=== PATIENT | male | born 1955 | race Two or more races ===

== ENCOUNTER 2017-08-05 19:02 | Emergency (ER) | payer MEDICAID, OTHER ==
[~2017-08-05] VITALS: Ht 162.6 cm; Wt 72.6 kg
[2017-08-05] MEDS ORDERED: Tylenol #3 tab (300mg/30mg) PO ONE (19:15)
[2017-08-05] MEDS ORDERED: Tetanus/Diptheria/Pertussis Vaccine 0.5ml Syr IM ONE (19:15)
[2017-08-05] MEDS ORDERED: Augmentin 875mg Tab ORAL ONE (19:15)
--- NOTE | 2017-08-05 19:30 | Emergency Room Report ---
History of Present Illness General Chief Complaint: Puncture Wound Source: Patient Present Illness HPI 62-year-old male presents ED for evaluation. States tonight he fell forward and his left hand landed on a nail. Patient states he removed the nail. Notes pain in his hands. Throbbing, 6/10, nonradiating. Tetanus unknown. Denies any other injuries. Denies any fevers or chills. Denies any discharge. No other aggravating relieving factors. Denies any other associated symptoms Allergies: Coded Allergies: No Known Allergies (Unverified , 08/05/17) Patient History Past Medical History: DM, HTN Past Surgical History: none Pertinent Family History: none Social History: Denies: smoking, alcohol use, drug use Immunizations: UTD Reviewed Nursing Documentation: PMH: Agreed, PSxH: Agreed Nursing Documentation-PMH Hx Hypertension: Yes Hx Diabetes: Yes Review of Systems All Other Systems: negative except mentioned in HPI Physical Exam Vital Signs Date Time Temp Pulse Resp B/P (MAP) Pulse Ox O2 Delivery O2 Flow Rate FiO2 08/05/17 19:05 98.2 78 22 98 Sp02 EP Interpretation: reviewed, normal General Appearance: no apparent distress, alert, GCS 15, non-toxic Head: normocephalic Eyes: bilateral eye normal inspection, bilateral eye PERRL ENT: normal ENT inspection Neck: normal inspection Respiratory: normal inspection Cardiovascular #1: normal inspection Gastrointestinal: normal inspection Rectal: deferred Genitourinary: no CVA tenderness Musculoskeletal: back normal, gait/station normal, normal range of motion, tender - L hand Neurologic: alert, oriented x3, responsive, motor strength/tone normal, sensory intact, speech normal Psychiatric: normal inspection Skin: other - puncture wound hypothenar aspect L hand. no induration/swelling Lymphatic: normal inspection Medical Decision Making Diagnostic Impression: Primary Impression: Puncture wound ER Course Hospital Course 62-year-old M presents to ED complaining of L hand pain, s/p puncture by nail Differential diagnoses include: Fracture, cellulitis, abscess Clinical course Patient placed on stretcher. After initial history and physical, I ordered tetanus, pain medications and Xrays of L hand Xrays prelim read shows no acute fracture/dislocation. no foreign body abx given Diagnosis - puncture wound Stable and discharged to home with prescription for Tylenol #3, Augmentin. followup with PMD. Return to ED if symptoms recur or worsen Other X-Ray Diagnostic Results Other X-Ray Diagnostic Results : X-Ray ordered: L hand # of Views/Limited Vs Complete: 3 View Indication: Pain EP Interpretation: Yes Interpretation: no dislocation, no soft tissue swelling, no fractures Impression: No acute disease Electronically Signed by: Electronically signed by Blake Brower MD Last Vital Signs Date Time Temp Pulse Resp B/P (MAP) Pulse Ox O2 Delivery O2 Flow Rate FiO2 08/05/17 19:05 98.2 78 22 98 Status: improved Disposition: HOME, SELF-CARE Condition: Stable Scripts Amoxicillin/Potassium Clav 875-125* (AUGMENTIN 875-125 TABLET*) 1 Each Tablet 1 TAB ORAL TWICE A DAY, #14 TAB Prov: BLAKE BROWER M.D. 08/05/17 Acetaminophen With Codeine (T#3) (TYLENOL #3 TAB*) Y Tab 1 TAB ORAL Q8H Y for For Pain, #20 TAB Prov: BLAKE BROWER M.D. 08/05/17 BLAKE BROWER M.D. Aug 05, 2017 19:30
[2017-08-05] MEDS ORDERED: ACETAMINOPHEN-1 EAC1 ORAL (19:56)
[2017-08-05] MEDS ORDERED: AUGMENTIN 875-1 EAC1 ORAL (19:56)
[2017-08-05 20:08] VITALS: BP 141/69
--- NOTE | 2017-08-06 12:31 | Diagnostic Imaging Report ---
Indication: PAIN, injury 3 days ago Technique: 3 views left hand Comparison: none Findings: No acute fractures. No dislocations. There are triangular fibrocartilage calcifications. There is old healed fracture deformity of the proximal first metacarpal. There are mild degenerative changes of the first carpometacarpal joint. There are vascular calcifications no definite abnormal soft tissue gas. No radiopaque foreign body. Impression: No acute bony trauma or evidence of worrisome soft tissue gas
== END 2017-08-05 20:08 | disposition home or self-care (01) ==
LOC: EMR 19:30
DX: S61.432A Puncture wound without foreign body of left hand, initial encounter (principal); W19.XXXA Unspecified fall, initial encounter; Y93.9 Activity, unspecified; Y99.9 Unspecified external cause status; I10 Essential (primary) hypertension; E11.9 Type 2 diabetes mellitus without complications; Z23 Encounter for immunization
CPT/HCPCS: 90471; 90715; 99284